=== PATIENT | male | born 1985 ===

== ENCOUNTER 2017-03-16 02:35 | Emergency (ER) | payer MEDICAID, OTHER ==
[2017-03-16 02:36] VITALS: BMI 33.0
[2017-03-16 03:11] VITALS: BP 134/53; PULSE 79; RESP 18; TEMP 98.6; O2SAT 96
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
== END 2017-03-16 05:50 | disposition home or self-care (01) ==
LOC: ED 02:35
DX: Z11.4 Encounter for screening for human immunodeficiency virus [HIV] (principal)

== ENCOUNTER 2017-08-29 22:22 | Emergency (ER) | payer OTHER ==
[2017-08-29 22:26] VITALS: BMI 38.7
[2017-08-29] MEDS ORDERED: Sodium Chloride 0.9% 1,000 ML IV STA (22:40)
--- NOTE | 2017-08-29 22:46 | ED PDOC ---
"Arrival/HPI - General Chief Complaint: Chest Pain Time Seen by Provider: 08/29/17 22:34 Historian: Patient - History of Present Illness Narrative History of Present Illness (Text): 08/29/17 22:46 31 y/o male, no significant pmh, nkda, c/o epigastric pain with nausea and vomiting x 6 hours. Pt. stated that he has not been eating entire day, noted to have epigastric pain, no coughing or shortness of breath, no pain medication taken at home. Pt. also complaining about the lt. foot pain which has been going on for the past 3 weeks, initially seen at another ER and has scheduled follow up to see the labor relations consultant tomorrow, no calf pain, no numbness or tingling, no rash, no palpitation, no other medical or psychological complaints. Past Medical History - Provider Review Nursing Documentation Reviewed: Yes - Past History Past History: Non-Contributing - Infectious Disease Hx of Infectious Diseases: None - Tetanus Immunization Tetanus Immunization: >10 years Ago - Past Medical History Past Medical History: No Previous - Cardiac Hx Cardiac Disorders: No - Pulmonary Hx Respiratory Disorders: No - Neurological Hx Neurological Disorder: No - HEENT Hx HEENT Disorder: No - Renal Hx Renal Disorder: No - Endocrine/Metabolic Hx Endocrine Disorders: No - Hematological/Oncological Hx Blood Disorders: No - Integumentary Hx Dermatological Disorder: No - Musculoskeletal/Rheumatological Hx Back Pain: Yes - Gastrointestinal Hx Gastrointestinal Disorders: No - Genitourinary/Gynecological Hx Genitourinary Disorders: No - Psychiatric Hx Psychophysiologic Disorder: No Hx Substance Use: No - Surgical History Hx Musculoskeletal Surgery: Yes (screw in Left foot) Other/Comment: screws in left foot, plate in right hand - Anesthesia Hx Anesthesia: Yes Hx Anesthesia Reactions: No Hx Malignant Hyperthermia: No - Suicidal Assessment Feels Threatened In Home Enviroment: No Family/Social History - Physician Review Nursing Documentation Reviewed: Yes Family/Social History: Unknown Family HX Smoking Status: Light Smoker < 10 Cigarettes Daily Hx Alcohol Use: No Hx Substance Use: No Allergies/Home Meds Allergies/Adverse Reactions: Allergies avocado Allergy (Verified 08/29/17 22:27) ANAPHYLAXIS latex Allergy (Verified 08/29/17 22:27) SWELLING Review of Systems - Review of Systems Constitutional: absent: Fatigue, Fevers Eyes: absent: Vision Changes ENT: absent: Hearing Changes Respiratory: absent: SOB, Cough Cardiovascular: absent: Chest Pain Gastrointestinal: Abdominal Pain, Nausea, Vomiting. absent: Diarrhea Musculoskeletal: Arthralgias. absent: Back Pain, Myalgias Skin: absent: Rash, Pruritis Neurological: absent: Headache, Dizziness Psychiatric: absent: Anxiety, Depression Physical Exam Vital Signs Reviewed: Yes Vital Signs Temp Pulse Resp BP Pulse Ox 08/30/17 02:33 99 F 08/30/17 02:11 80 16 126/61 96 08/29/17 22:37 100.4 F H 100 H 18 133/79 97 Temperature: Febrile Blood Pressure: Normal Pulse: Tachycardic Respiratory Rate: Normal Appearance: Positive for: Well-Appearing, Non-Toxic, Comfortable Pain Distress: Moderate Mental Status: Positive for: Alert and Oriented X 3 - Systems Exam Head: Present: Atraumatic, Normocephalic Pupils: Present: PERRL Extroacular Muscles: Present: EOMI Conjunctiva: Present: Normal Mouth: Present: Moist Mucous Membranes Neck: Present: Normal Range of Motion Respiratory/Chest: Present: Clear to Auscultation, Good Air Exchange. No: Respiratory Distress, Accessory Muscle Use Cardiovascular: Present: Regular Rate and Rhythm, Normal S1, S2. No: Murmurs Abdomen: Present: Tenderness (+epigastric tenderness, no cva tenderness), Normal Bowel Sounds. No: Distention, Peritoneal Signs, Rebound, Guarding Back: Present: Normal Inspection Upper Extremity: Present: Normal Inspection. No: Cyanosis, Edema Lower Extremity: Present: Normal Inspection, Other (Lt. foot/ankle: +ttp on the lt. dorsum foot with no swelling, no ankle tenderness or swelling, negative tori and mckee signs, FROM without limitation, sensation intact, motor 5/5, +DPPT pulses, capillary refill< 2 seconds, neurovascular intact. ). No: Edema Neurological: Present: GCS=15, CN II-XII Intact, Speech Normal Skin: Present: Warm, Dry, Normal Color. No: Rashes Psychiatric: Present: Alert, Oriented x 3, Normal Insight, Normal Concentration Medical Decision Making ED Course and Treatment: 08/29/17 22:50 -labs/cardiac enzyme -CT abdomen and pelvis -Lt. foot xray -IVF/pepcid/zofran/tylenol/toradol -Observe and reassess 08/30/17 01:09 -Chest xray show no active disease -Lt. foot show no acute fracture or dislocation -CT abdomen and pelvis show No evidence of a significant acute process. Findings suspicious for a portosystemic collateral vessel, and cannot exclude portosystemic shunting due to portal hypertension. CT appearance of the liver is within normal limits. Recommend clinical correlation. -Labs show no acute findings except lipase 455, morphine 4mg IV ordered as he still has epigastric pain. -Rapid flu show is positive, tamiflu ordered. 08/30/17 02:23 -Posterior splint applied by me with neurovascular intact, crutches ordered. -Pain well controlled and the patient request to be discharged home with outpatient follow up as he doesn't want to be admitted. -I discussed with the patient about the light and non-greasy food diet plus outpatient GI follow up, stop all alcohol drinks. -I checked the [facility] report and there is no prescription for narcotics for this patient. Pt. stated that he has appointment with his elastic attacher overlock tomorrow and he will follow up. -Discharge home with posterior splint, crutches, Tamiflu, motrin, pepcid, zofran , percocet, avoid alcohol and non-greasy food, follow up with your own pmd and GI within 2 days, return to the ER for any new or worsening signs or symptoms. I educated the patient about the diet as well including but not limited to Foods to limit include: red meat organ meats fried foods fries and potato chips mayonnaise margarine and butter full-fat dairy pastries and desserts with added sugars beverages with added sugars If youre trying to combat pancreatitis, your focus needs to be on avoiding trans fatty acids in your diet. Foods that are fried or heavily processed, like [place] fries and fast food hamburgers, are some of the worst offenders. Organ meats, full-fat dairy, potato chips, and mayonnaise also top the list of foods to limit. Anything that has been cooked or deep-fried might trigger a flare-up of pancreatitis. Youll want to cut way back on the refined flour thats in cakes, pastries, and cookies. These food items can tax the digestive system by causing your insulin levels to spike, which can lead to diabetes. RECOVERY DIET Pancreatitis recovery diet If youre recovering from acute or chronic pancreatitis, you should avoid drinking alcohol. If you smoke, youll also need to quit. You should continue to focus on eating a low-fat diet that wont tax or inflame your pancreas. You should also focus on staying hydrated, keeping an electrolyte beverage or a bottle of water with you at all times. If youve been hospitalized due to a pancreatitis flare-up, your doctor will probably refer you to a dietitian to help you learn how to change your eating habits permanently. People with chronic pancreatitis often experience malnutrition due to their decreased pancreas function. Vitamins A, D, E, and K are most commonly found to be lacking as a result of pancreatitis. Diet tips Always check with your doctor or marina porter before changing your eating habits when you have pancreatitis. Here are some tips they might suggest: Eat between six and eight small meals throughout the day to help recover from pancreatitis. This is easier on your digestive system than eating two or three large meals. Use MCTs as your primary fat since this type of fat does not require pancreatic enzymes to be digested. MCTs can be found in coconut and palm kernel oils and is available at most [employer] food stores. Avoid eating too much fiber at once, as this can slow digestion and result in [id number] absorption of nutrients from food. Fiber may also make your limited amount of enzymes less effective. Take a multivitamin supplement to ensure that youre getting the nutrition you need, regardless of the ways you might have to restrict your eating. CAUSES Causes of pancreatitis The most common cause of chronic pancreatitis is drinking too much alcohol, according to the [place] Department of Health and Human Services. Pancreatitis can also be genetic, or the symptom of an autoimmune reaction. In many cases of acute pancreatitis, the condition is triggered by a blocked bile duct or gallstones. TREATMENT Other treatments for pancreatitis If your pancreas has been damaged by pancreatitis, a change in your diet will help you to feel better. But it might not be enough to restore the function of the pancreas completely. Your doctor may prescribe supplemental or synthetic pancreatic enzymes for you to take with every meal. If youre still experiencing pain from chronic pancreatitis, you might want to try an alternative therapy such as yoga or acupuncture to supplement your doctors prescribed pancreatitis treatment. An endoscopic ultrasound or a surgery might be recommended as the next course of action if your pain continues. - Lab Interpretations Lab Results: 08/29/17 22:45 08/29/17 22:45 Lab Results 08/30/17 00:50: Influenza Typ A,B (EIA) Pos for influenza a H 08/29/17 22:45: WBC 5.4, RBC 4.41, Hgb 14.8, Hct 42.9, MCV 97.3, MCH 33.6, MCHC 34.5, RDW 12.6, Plt Count 212, MPV 10.0, Gran % 72.1 H, Lymph % (Auto) 17.0 L, Campbell % (Auto) 9.6 H, Eos % (Auto) 0.9 L, Baso % (Auto) 0.4, Gran # 3.91, Lymph # (Auto) 0.9 L, Campbell # (Auto) 0.5, Eos # (Auto) 0.1, Baso # (Auto) 0.02 08/29/17 22:45: Alcohol, Quantitative < 10 08/29/17 22:45: Sodium 138, Potassium 3.9, Chloride 103, Carbon Dioxide 24, Anion Gap 15, BUN 9, Creatinine 0.8, Est GFR ( Amer) > 60, Est GFR (Non- Af Amer) > 60, Random Glucose 102, Calcium 9.5, Total Bilirubin 0.5, AST 27, ALT 27, Alkaline Phosphatase 51, Lactate Dehydrogenase 494, Total Creatine Kinase 89, Troponin I < 0.01, Total Protein 7.3, Albumin 4.1, Globulin 3.2, Albumin/Globulin Ratio 1.3, Lipase 455 H - RAD Interpretation Radiology Orders: 08/29/17 22:39 CHEST PORTABLE [RAD] Stat FOOT LEFT 3 VIEWS ROUTINE [RAD] Stat 08/29/17 22:41 ABD & PELVIS IV CONTRAST ONLY [CT] Stat Chest xray: no active disease -- Lt. foot xray: no acute findings --- CT abdomen and pelvis: FINDINGS: LOWER THORAX: Heart appears mildly prominent in size for age. Lung bases are clear. ABDOMEN: LIVER: Within normal limits in appearance. GALLBLADDER AND BILE DUCTS: No CT evidence of acute cholecystitis. No evidence of significant biliary ductal dilatation. PANCREAS: No CT evidence of acute pancreatitis. SPLEEN: No acute abnormality of the spleen identified. ADRENALS: No acute abnormality of the adrenal glands identified. KIDNEYS AND URETERS: No acute abnormality of the kidneys identified. No evidence of significant hydrouereteronephrosis. JENSEN TRAN | Final Radiology Report CONFIDENTIALITY STATEMENT This report is intended only for use by the referring physician, and only in accordance with law. If you received this in error, call [phone]. Page 2 of 2 STOMACH AND BOWEL: Retained stool noted throughout the colon. Bowel is otherwise unremarkable in appearance. No evidence of fecal impaction. No evidence of bowel obstruction. APPENDIX: Appendix is seen, and is within normal limits in appearance. PELVIS: BLADDER: No acute abnormality of the bladder identified. REPRODUCTIVE: No acute abnormality of the reproductive organs is seen. ABDOMEN and PELVIS: INTRAPERITONEAL SPACE: No evidence of free intraperitoneal air or fluid. BONES/JOINTS: No acute fractures or other acute bony abnormality noted. SOFT TISSUES: No acute abnormality of the visualized soft tissues is seen. VASCULATURE: A prominent vessel is seen in the upper abdomen, which extends from the main portal vein to the left renal vein. This is suspicious for a portosystemic collateral vessel. The liver does not appear significantly cirrhotic. The portal vein is patent. LYMPH NODES: No evidence of diffuse lymphadenopathy. IMPRESSION: - No evidence of a significant acute process. - Findings suspicious for a portosystemic collateral vessel, and cannot exclude portosystemic shunting due to portal hypertension. CT appearance of the liver is within normal limits. Recommend clinical correlation. - See above for remaining findings. Thank you for allowing us to participate in the care of your patient. Dictated and Authenticated by: Iesha Rajput MD 08/30/2017 12:39 AM Eastern Time ([place] & [place]) Ep Tech: Radiologist - Medication Orders Current Medication Orders: Discontinued Medications Acetaminophen (Tylenol 325mg Tab) 650 mg PO STAT STA Stop: 08/29/17 22:50 Last Admin: 08/29/17 22:58 Dose: 650 mg MAR Pain/Vitals Document 08/29/17 22:58 RD (Rec: 08/29/17 22:58 RD [id number]) Pain Reassessment Is This A Pain ReAssessment? No Sleep Is patient sleeping during reassessment? No Presence of Pain Presence of Pain Yes Famotidine (Pepcid) 20 mg IVP STAT STA Stop: 08/29/17 22:40 Last Admin: 08/29/17 22:58 Dose: 20 mg IVP Administration Document 08/29/17 22:58 RD (Rec: 08/29/17 22:58 RD [id number]) Charges for Administration # of IVP Administrations 1 Sodium Chloride (Sodium Chloride 0.9%) 1,000 mls @ 999 mls/hr IV .Q1H1M STA Stop: 08/29/17 23:40 Last Admin: 08/29/17 22:45 Dose: 999 mls/hr eMAR Start Stop Document 08/29/17 22:45 RD (Rec: 08/29/17 23:00 RD [id number]) Intravenous Solution Start Date 08/29/17 Start Time 23:00 End Date 08/30/17 End time 00:00 Total Infusion Time 60 Ketorolac Tromethamine (Toradol) 30 mg IVP STAT STA Stop: 08/29/17 22:41 Last Admin: 08/29/17 22:59 Dose: 30 mg MAR Pain Assessment Document 08/29/17 22:59 RD (Rec: 08/29/17 22:59 RD [id number]) Pain Reassessment Is this a pain reassessment? No Sleep Is patient sleeping during reassessment? No Presence of Pain Presence of Pain Yes IVP Administration Document 08/29/17 22:59 RD (Rec: 08/29/17 22:59 RD [id number]) Charges for Administration # of IVP Administrations 1 Morphine Sulfate (Morphine) 4 mg IVP STAT STA Stop: 08/30/17 00:53 Last Admin: 08/30/17 01:51 Dose: 4 mg IVP Administration Document 08/30/17 01:51 RD (Rec: 08/30/17 01:52 RD [id number]) Charges for Administration # of IVP Administrations 1 Ondansetron HCl (Zofran Inj) 4 mg IVP STAT STA Stop: 08/29/17 22:41 Last Admin: 08/29/17 22:54 Dose: 4 mg IVP Administration Document 08/29/17 22:54 RD (Rec: 08/29/17 22:59 RD [id number]) Charges for Administration # of IVP Administrations 1 Oseltamivir Phosphate (Tamiflu Cap) 75 mg PO BID SARAH PRN Reason: Protocol Stop: 09/04/17 01:18 Last Admin: 08/30/17 01:52 Dose: 75 mg - PA / [employer] / Resident Statement MD/DO has reviewed & agrees with the documentation as recorded. Disposition/Present on Arrival - Present on Arrival Any Indicators Present on Arrival: Yes History of DVT/PE: No History of Uncontrolled Diabetes: No Urinary Catheter: No History of Decub. Ulcer: No History Surgical Site Infection Following: None - Disposition Have Diagnosis and Disposition been Completed?: Yes Diagnosis: Pancreatitis, Foot pain, Influenza Disposition: HOME/ ROUTINE Disposition Time: 02:02 Patient Plan: Discharge Condition: IMPROVED Discharge Instructions (ExitCare): Pancreatitis (ED) Print Language: CROATIAN Additional Instructions: -Discharge home with Tamiflu, motrin, pepcid, zofran, percocet, avoid alcohol and non-greasy food, follow up with your own pmd and GI within 2 days, return to the ER for any new or worsening signs or symptoms. Prescriptions: Famotidine [Pepcid] 20 mg PO BID #20 tab Ibuprofen [Motrin] 600 mg PO QID PRN #24 tab PRN Reason: Other Ondansetron HCl [Zofran] 4 mg PO QID PRN #12 tablet PRN Reason: Other Oseltamivir Phosphate [Tamiflu] 75 mg PO BID #10 capsule oxyCODONE/Acetaminophen [Percocet 5/325 mg Tab] 1 tab PO QID PRN #12 tab PRN Reason: Other Referrals: Teo Lyn MD [Primary Care Provider] - Follow up with primary Reid Arellano MD [Staff Provider] - Follow up with primary Raymond Isaac III, MD [Medical Doctor] - Follow up with primary Arloro,Vincent, DPM [Staff Provider] - Follow up with primary Forms: WORK NOTE"
[2017-08-29 23:07] LABS: ALB/GLOB RATIO 1.3 (1.1-1.8); ALBUMIN 4.1 g/dL (3.0-4.8); CALCIUM 9.5 mg/dL (8.4-10.5); GFR AFRICAN-AMERICAN > 60; GFR NON-AFRICAN AMERICAN > 60; LIPASE 455 U/L (23-300)
[2017-08-29 23:10] LABS: ALT/SGPT 27 U/L (7-56); AST/SGOT 27 U/L (17-59); BLOOD UREA NITROGEN 9 mg/dL (7-21)
[2017-08-29 23:12] LABS: BASO # 0.02 K/mm3 (0.0-2.0); BASO % 0.4 % (0.0-3.0); EOS # 0.1 (0.0-0.7); EOS % 0.9 % (1.5-5.0); GRAN # 3.91 (1.4-6.5); GRAN % 72.1 % (50.0-68.0); HEMOGLOBIN 14.8 g/dL (14.0-18.0); LYMPH # 0.9 (1.2-3.4); MEAN CELL VOLUME 97.3 fl (80.0-105.0); MEAN CORPUSCULAR HEMOGLOBIN 33.6 pg (25.0-35.0); MEAN CORPUSCULAR HGB CONC 34.5 g/dl (31.0-37.0); MONO # 0.5 (0.1-0.6); MONO % 9.6 % (1.0-6.0); RBC 4.41 10^6/uL (3.5-6.1); RED CELL DISTRIBUTION WIDTH 12.6 % (11.5-14.5); WHITE BLOOD COUNT 5.4 10^3/ul (4.5-11.0)
[2017-08-29 23:18] LABS: TROPONIN I < 0.01 ng/mL
[2017-08-29] MEDS ORDERED: Iohexol 350 MG/100 ML VIAL ONE (23:38)
--- NOTE | 2017-08-30 00:40 | CT ---
EXAM: CT Abdomen and Pelvis With Intravenous Contrast EXAM DATE/TIME: 08/29/2017 10:41 PM CLINICAL HISTORY: 31 years old, male; Pain; Abdominal pain; Generalized; Additional info: Upper abdominal pain TECHNIQUE: Axial computed tomography images of the abdomen and pelvis with intravenous contrast. All CT scans at this facility use one or more dose reduction techniques, viz.: automated exposure control; ma/kV adjustment per patient size (including targeted exams where dose is matched to indication; i.e. head); or iterative reconstruction technique. Coronal and sagittal reformatted images were created and reviewed. CONTRAST: 100 mL of OMNI 350 administered intravenously. COMPARISON: No relevant prior studies available. FINDINGS: LOWER THORAX: Heart appears mildly prominent in size for age. Lung bases are clear. ABDOMEN: LIVER: Within normal limits in appearance. GALLBLADDER AND BILE DUCTS: No CT evidence of acute cholecystitis. No evidence of significant biliary ductal dilatation. PANCREAS: No CT evidence of acute pancreatitis. SPLEEN: No acute abnormality of the spleen identified. ADRENALS: No acute abnormality of the adrenal glands identified. KIDNEYS AND URETERS: No acute abnormality of the kidneys identified. No evidence of significant hydrouereteronephrosis. STOMACH AND BOWEL: Retained stool noted throughout the colon. Bowel is otherwise unremarkable in appearance. No evidence of fecal impaction. No evidence of bowel obstruction. APPENDIX: Appendix is seen, and is within normal limits in appearance. PELVIS: BLADDER: No acute abnormality of the bladder identified. REPRODUCTIVE: No acute abnormality of the reproductive organs is seen. ABDOMEN and PELVIS: INTRAPERITONEAL SPACE: No evidence of free intraperitoneal air or fluid. BONES/JOINTS: No acute fractures or other acute bony abnormality noted. SOFT TISSUES: No acute abnormality of the visualized soft tissues is seen. VASCULATURE: A prominent vessel is seen in the upper abdomen, which extends from the main portal vein to the left renal vein. This is suspicious for a portosystemic collateral vessel. The liver does not appear significantly cirrhotic. The portal vein is patent. LYMPH NODES: No evidence of diffuse lymphadenopathy. IMPRESSION: - No evidence of a significant acute process. - Findings suspicious for a portosystemic collateral vessel, and cannot exclude portosystemic shunting due to portal hypertension. CT appearance of the liver is within normal limits. Recommend clinical correlation. - See above for remaining findings.
[2017-08-30] MEDS ORDERED: Morphine 5 MG/ML SYRINGE IVP STA (00:52)
[2017-08-30 02:12] VITALS: BP 126/61; PULSE 80; RESP 16; O2SAT 96
[2017-08-30 02:33] VITALS: TEMP 99
--- NOTE | 2017-08-30 09:54 | RAD ---
HISTORY: epigastric pain COMPARISON: 08/05/2016 FINDINGS: LUNGS: No active pulmonary disease. PLEURA: No significant pleural effusion identified, no pneumothorax apparent. CARDIOVASCULAR: Normal. OSSEOUS STRUCTURES: No significant abnormalities. VISUALIZED UPPER ABDOMEN: Normal. OTHER FINDINGS: None. IMPRESSION: No active disease.
--- NOTE | 2017-08-30 09:57 | RAD ---
PROCEDURE: Left Foot Radiographs. HISTORY: lt. foot pain COMPARISON: None. FINDINGS: BONES: Normal. No fracture. JOINTS: Normal. SOFT TISSUES: Normal. OTHER FINDINGS: An orthopedic screw is seen in the base of the 5th metatarsal IMPRESSION: No acute findings
[2017-08-30] MEDS ORDERED: Dextrose 50% SYRINGE Inj (50 ml) ONE (12:38)
--- NOTE | 2017-08-30 14:40 | CARD ---
APPROVED REPORT EKG Measurement Heart [id number] <Conclusion> Normal sinus rhythm Normal ECG
== END 2017-08-30 02:45 | disposition home or self-care (01) ==
LOC: ED 22:22
DX: J11.1 Influenza due to unidentified influenza virus with other respiratory manifestations (principal); K85.90 Acute pancreatitis without necrosis or infection, unspecified; M79.672 Pain in left foot; F17.210 Nicotine dependence, cigarettes, uncomplicated
CPT/HCPCS: 71045; 73630; 74177; 80053; 80320; 82550; 83615; 83690; 84484; 85025; 87804; 93005; 96361; 96374; 96375; 99283; J1885; J2270; J2405; J7040; Q9967

== ENCOUNTER 2017-12-06 22:01 | Emergency (ER) | payer OTHER ==
[2017-12-06 22:48] VITALS: RESP 18; BMI 37.3
[2017-12-06] MEDS ORDERED: Sodium Chloride 0.9% 1,000 ML IV STA (22:57)
[2017-12-06] MEDS ORDERED: Famotidine 20mg/50ml 20 MG/50 ML BAG IVPB STA (23:01)
--- NOTE | 2017-12-06 23:03 | ED PDOC ---
Arrival/HPI - General Chief Complaint: Abdominal Pain Time Seen by Provider: 12/06/17 22:38 Historian: Patient - History of Present Illness Narrative History of Present Illness (Text): 12/06/17 23:00 This 31 yo male with pmh pancreatitis, presents to this ED c/o RUQ abdominal pain x 2 days. Patient stated he was diagnosed with pancreatitis x 3 months ago. Patient stated abdominal pain has been intermittent, but it worsen 2 days ago. Patient stated he vomited 2 times today. Patient noted trace rectal bleeding x 2 weeks ago, but it resolved same day. Denies rectal bleeding at this time. Time/Duration: Other (see hpi) Context: Home Past Medical History - Provider Review Nursing Documentation Reviewed: Yes - Past History Past History: Non-Contributing - Infectious Disease Hx of Infectious Diseases: None - Tetanus Immunization Tetanus Immunization: >10 years Ago - Past Medical History Past Medical History: No Previous - Cardiac Hx Cardiac Disorders: No - Pulmonary Hx Respiratory Disorders: No - Neurological Hx Neurological Disorder: No - HEENT Hx HEENT Disorder: No - Renal Hx Renal Disorder: No - Endocrine/Metabolic Hx Endocrine Disorders: No - Hematological/Oncological Hx Blood Disorders: No - Integumentary Hx Dermatological Disorder: No - Musculoskeletal/Rheumatological Hx Back Pain: Yes - Gastrointestinal Hx Gastrointestinal Disorders: No - Genitourinary/Gynecological Hx Genitourinary Disorders: No - Psychiatric Hx Psychophysiologic Disorder: No Hx Substance Use: Yes - Surgical History Hx Musculoskeletal Surgery: Yes (screw in Left foot) Other/Comment: screws in left foot, plate in right hand - Anesthesia Hx Anesthesia: Yes Hx Anesthesia Reactions: No Hx Malignant Hyperthermia: No - Suicidal Assessment Feels Threatened In Home Enviroment: No Family/Social History - Physician Review Nursing Documentation Reviewed: Yes Family/Social History: Other (noncontributory) Smoking Status: Light Smoker < 10 Cigarettes Daily Hx Alcohol Use: No Hx Substance Use: Yes Substance used: marijuana Allergies/Home Meds Allergies/Adverse Reactions: Allergies avocado Allergy (Verified 08/29/17 22:27) ANAPHYLAXIS latex Allergy (Verified 08/29/17 22:27) SWELLING Home Medications: Home Meds Medication Instructions Recorded Confirmed Omeprazole [Omeprazole] 20 mg PO DAILY 12/07/17 12/07/17 Review of Systems - Review of Systems Constitutional: Normal. absent: Fatigue, Fevers, Night Sweats Eyes: Normal ENT: Normal Respiratory: Normal. absent: SOB, Cough Cardiovascular: Normal. absent: Chest Pain, Palpitations Gastrointestinal: Abdominal Pain, Nausea, Vomiting. absent: Diarrhea Genitourinary Male: Normal. absent: Dysuria, Frequency, Hematuria Musculoskeletal: Normal. absent: Arthralgias, Back Pain, Neck Pain, Joint Swelling, Myalgias Skin: Normal. absent: Rash Neurological: Normal. absent: Headache, Dizziness, Focal Weakness, Gait Changes , Speech Changes, Facial Droop, Disequilibrium, Seizure Endocrine: Normal Hemo/Lymphatic: Normal Psychiatric: Normal Physical Exam Vital Signs Temp Pulse Resp BP Pulse Ox 12/07/17 00:01 98.4 F 81 18 132/74 95 12/06/17 22:26 99 H 18 160/95 H 100 Temperature: Afebrile Blood Pressure: Normal Pulse: Regular Respiratory Rate: Normal Appearance: Positive for: Well-Appearing, Non-Toxic, Comfortable Pain Distress: None Mental Status: Positive for: Alert and Oriented X 3 - Systems Exam Head: Present: Atraumatic, Normocephalic Pupils: Present: PERRL Extroacular Muscles: Present: EOMI Conjunctiva: Present: Normal Mouth: Present: Moist Mucous Membranes Neck: Present: Normal Range of Motion Respiratory/Chest: Present: Clear to Auscultation, Good Air Exchange. No: Respiratory Distress, Accessory Muscle Use Cardiovascular: Present: Regular Rate and Rhythm, Normal S1, S2. No: Murmurs Abdomen: Present: Tenderness ((+) moderate tenderness on palpation on RUQ, and epigastric area.), Other (No RLQ tenderness noted. No periumbilical tenderness) . No: Distention, Peritoneal Signs, Rebound, Guarding, McBurney's Point Tender , Rovsing's Sign Present, Hernias Back: Present: Normal Inspection. No: CVA Tenderness Upper Extremity: Present: Normal Inspection, Normal ROM. No: Cyanosis, Edema Lower Extremity: Present: Normal Inspection, Normal ROM. No: Edema Neurological: Present: GCS=15, CN II-XII Intact, Speech Normal, Motor Func Grossly Intact, Normal Sensory Function, Normal Cerebellar Funct, Gait Normal Skin: Present: Warm, Dry, Normal Color. No: Rashes Psychiatric: Present: Alert, Oriented x 3, Normal Insight, Normal Concentration Medical Decision Making ED Course and Treatment: 12/07/17 02:07 EXAM: US Abdomen Complete FINDINGS: Liver: Unremarkable measuring 17 cm. No mass. No intrahepatic bile duct dilation. Gallbladder: The gallbladder is contracted but otherwise normal. Negative Maria 's sign. Common bile duct: Unremarkable as visualized measuring 3 mm. No stones. No dilation. Pancreas: The pancreas is poorly-visualized due to overlying bowel gas. Kidneys: Unremarkable. The right kidney measures 11.4 cm and the left kidney measures 9.8 cm. No stones. No solid mass. No hydronephrosis. Spleen: Unremarkable measuring 11.6 cm. No splenomegaly. Aorta: Unremarkable. No aneurysm. Inferior vena cava: Unremarkable. IMPRESSION: Unremarkable abdominal ultrasound. 12/07/17 02:10 Re-evaluation. Patient feels better. Discussed results and plan with patient who expresses understanding. All questions answered and there is agreement with the plan to discharge home with instructions. Patient stable for discharge. Return if symptoms persist or worsen. Patient was recommended to return to emergency if he develops pain on RLQ area or periumbilical area. Abdomen is soft, nd, no RLQ or periumbilical tenderness. Re-evaluation Time: 02:07 Reassessment Condition: Re-examined, Improved - Lab Interpretations Lab Results: 12/06/17 23:12 12/06/17 23:12 Lab Results 12/06/17 23:12: Sodium 144, Potassium 3.6, Chloride 104, Carbon Dioxide 26, Anion Gap 17, BUN 7, Creatinine 0.8, Est GFR ( Amer) > 60, Est GFR (Non- Af Amer) > 60, Random Glucose 91, Calcium 9.3, Magnesium 1.9, Total Bilirubin 0.4, AST 25, ALT 26, Alkaline Phosphatase 70, Total Protein 7.4, Albumin 4.3, Globulin 3.1, Albumin/Globulin Ratio 1.4, Lipase 77 12/06/17 23:12: PT 12.4, INR 1.09 H, APTT 29.6 12/06/17 23:12: WBC 6.4, RBC 4.63, Hgb 15.5, Hct 43.1, MCV 93.1 D, MCH 33.5, MCHC 36.0, RDW 13.4, Plt Count 252, MPV 9.7, Gran % 57.0, Lymph % (Auto) 34.2, [place] % (Auto) 7.3 H, Eos % (Auto) 1.3 L, Baso % (Auto) 0.2, Gran # 3.65, Lymph # (Auto) 2.2, [place] # (Auto) 0.5, Eos # (Auto) 0.1, Baso # (Auto) 0.01 - RAD Interpretation Radiology Orders: 12/06/17 22:57 ABDOMEN COMPLETE [US] Stat - Medication Orders Current Medication Orders: Discontinued Medications Sodium Chloride (Sodium Chloride 0.9%) 1,000 mls @ 1,000 mls/hr IV .Q1H STA Stop: 12/06/17 23:56 Last Admin: 12/06/17 23:15 Dose: 1,000 mls/hr eMAR Start Stop Document 12/06/17 23:15 LA (Rec: 12/06/17 23:15 LA [id number]) Intravenous Solution Start Date 12/06/17 Start Time 23:15 End Date 12/07/17 End time 00:15 Total Infusion Time 60 Famotidine (Pepcid 20mg/50ml Premix) 20 mg in 50 mls @ 200 mls/hr IVPB STAT STA Stop: 12/06/17 23:15 Last Admin: 12/06/17 23:18 Dose: 200 mls/hr eMAR Start Stop Document 12/06/17 23:18 LA (Rec: 12/06/17 23:19 LA [id number]) Intravenous Solution Start Date 12/06/17 Start Time 23:18 End Date 12/06/17 End time 23:33 Total Infusion Time 15 Ondansetron HCl (Zofran Inj) 4 mg IVP STAT STA Stop: 12/06/17 22:58 Last Admin: 12/06/17 23:18 Dose: 4 mg IVP Administration Document 12/06/17 23:18 LA (Rec: 12/06/17 23:18 LA [id number]) Charges for Administration # of IVP Administrations 1 Disposition/Present on Arrival - Present on Arrival Any Indicators Present on Arrival: No History of DVT/PE: No History of Uncontrolled Diabetes: No Urinary Catheter: No History of Decub. Ulcer: No History Surgical Site Infection Following: None - Disposition Have Diagnosis and Disposition been Completed?: Yes Diagnosis: Epigastric abdominal pain Disposition: HOME/ ROUTINE Disposition Time: 02:13 Patient Plan: Discharge Patient Problems: Current Active Problems Problem Status Onset Epigastric abdominal pain Acute Condition: IMPROVED Discharge Instructions (ExitCare): Chronic Pain (DC) Additional Instructions: Call private doctor for follow up visit in 1-2 days. Take medication as instructed. Return to emergency if abdominal pain radiates to right lower abdomen, fever or worsening of pain. or if you develop pain near umbilicus Prescriptions: Sucralfate [Carafate] 1 gm PO DAILY #20 tab Referrals: Carlos Live MD [Family Provider] - Follow up with primary Forms: [employer] (Polish), WORK NOTE
[2017-12-06 23:29] LABS: BASO # 0.01 K/mm3 (0.0-2.0); BASO % 0.2 % (0.0-3.0); EOS # 0.1 (0.0-0.7); EOS % 1.3 % (1.5-5.0); GRAN # 3.65 (1.4-6.5); HEMOGLOBIN 15.5 g/dL (14.0-18.0); LYMPH # 2.2 (1.2-3.4); LYMPH % 34.2 % (22.0-35.0); MEAN CORPUSCULAR HEMOGLOBIN 33.5 pg (25.0-35.0); MEAN PLATELET VOLUME 9.7 fl (7.0-11.0); MONO # 0.5 (0.1-0.6); MONO % 7.3 % (1.0-6.0); RBC 4.63 10^6/uL (3.5-6.1); RED CELL DISTRIBUTION WIDTH 13.4 % (11.5-14.5); WHITE BLOOD COUNT 6.4 10^3/ul (4.5-11.0)
[2017-12-06 23:30] LABS: MEAN CELL VOLUME 93.1 fl (80.0-105.0)
[2017-12-06 23:41] LABS: ALB/GLOB RATIO 1.4 (1.1-1.8); ALBUMIN 4.3 g/dL (3.0-4.8); ALT/SGPT 26 U/L (7-56); AST/SGOT 25 U/L (17-59); BLOOD UREA NITROGEN 7 mg/dL (7-21); CALCIUM 9.3 mg/dL (8.4-10.5); GFR NON-AFRICAN AMERICAN > 60; LIPASE 77 U/L (23-300)
[2017-12-06 23:45] LABS: INR 1.09 (0.93-1.08); PARTIAL THROMBOPLASTIN TIME 29.6 Seconds (25.1-36.5); PROTHROMBIN TIME 12.4 SECONDS (9.4-12.5)
--- NOTE | 2017-12-07 01:51 | US ---
EXAM: US Abdomen Complete CLINICAL HISTORY: 31 years old, male; Pain; Abdominal pain; Generalized; Additional info: Ruq pain TECHNIQUE: Real-time ultrasound of the abdomen (complete) with image documentation. COMPARISON: CT - ABD PELVIS IV CONTRAST ONLY 2017-08-29 23:46 FINDINGS: Liver: Unremarkable measuring 17 cm. No mass. No intrahepatic bile duct dilation. Gallbladder: The gallbladder is contracted but otherwise normal. Negative Maria's sign. Common bile duct: Unremarkable as visualized measuring 3 mm. No stones. No dilation. Pancreas: The pancreas is poorly-visualized due to overlying bowel gas. Kidneys: Unremarkable. The right kidney measures 11.4 cm and the left kidney measures 9.8 cm. No stones. No solid mass. No hydronephrosis. Spleen: Unremarkable measuring 11.6 cm. No splenomegaly. Aorta: Unremarkable. No aneurysm. Inferior vena cava: Unremarkable. IMPRESSION: Unremarkable abdominal ultrasound.
[2017-12-07] MEDS ORDERED: Alum-Mag Hydrox-Simethicone Susp (30 mL) PO STA (02:08)
[2017-12-07] MEDS ORDERED: Atrop/Hyosc/Scopal/PB Elixir (120 ml) PO STA (02:08)
[2017-12-07 02:39] VITALS: BP 130/80; PULSE 89; TEMP 98; O2SAT 100
== END 2017-12-07 02:39 | disposition home or self-care (01) ==
LOC: ED 22:01
DX: R10.13 Epigastric pain (principal); F17.210 Nicotine dependence, cigarettes, uncomplicated
CPT/HCPCS: 76700; 80053; 83690; 83735; 85025; 85610; 85730; 96361; 96374; 96375; 99284; J1885; J2405; J7040